=== PATIENT | female | born 1990 | race Caucasian/White ===

== ENCOUNTER 2019-07-27 07:29 | Observation (INO) ==
--- NOTE | 2019-07-24 10:12 | Anesthesiology Consultation ---
Date of Service July 24, 2019 Assessment & Plan Chart Review Chart Review: Acceptable Risk for Surgery and Patient NOT seen in Pre Admission Testing Consults Requested none ASA ASA2 Proposed Anesthesia Anesthesia Type: General History Surgery Operation Date: 07/27/19 08:15 Proposed Procedures p Laparoscopic Cholecystectomy - Bj White MD, FACS Height/Weight Height: 5 ft 5 in Weight: 104.78 kg Allergies Allergy/AdvReac Type Severity Reaction Status Date / Time bee venom protein (honey bee) Allergy Severe ANAPHYLAXIS Verified 07/24/19 08:48 BODY GLITTER Allergy Intermediate swelling Uncoded 07/24/19 08:48 Medications Home Medications Medication Instructions Recorded Confirmed Last Taken albuterol sulfate 1.25 mg INH Q6H PRN #75 ml 05/31/18 07/24/19 Unknown acetaminophen [Tylenol] 650 mg PO Q6H PRN 07/21/19 07/24/19 Unknown oxycodone 5 mg PO Q4H PRN 07/24/19 07/24/19 Unknown Past Medical History Medical History Anxiety Asthma rarely uses PRN INH Attention deficit disorder (Chronic 01/13/13) Depression (Chronic 01/13/13) No significant active problems (Resolved) Exercise / Class Metabolic Activity II 4-5 Yardwork/Stairs/Walk up hill Past Family History Family History Mother FHx: cholecystectomy Sister Hx of cholecystectomy Past Surgical History Surgical History H/O pilonidal cyst (Resolved) S/P SURGICAL EXCISION, CLOSURE WITH WOUND VAC Past Anesthesia History No Hx of Anesthesia Complications and No Family Hx of Anesthesia Complications History of PONV No Hx of PONV and No Hx of Motion Sickness Social History Smoking Status: Current every day smoker tobacco type: cigarettes Smoking cigarettes per day: 1/2 ppd Do You Dip or Chew Tobacco: No Hx Alcohol Use: No Hx Substance Use: No substance use type: does not use Testing Laboratory Results WBC:11.77 Hc.8 Hct: 40.8 PLATELETS: 225 SODIUM: 138 POTASSIUM: 3.8 CHLORIDE: 105 CO2: 30 BUN: 17 CREATININE: 0.7 GLUCOSE: 98 PT: PTT: INR: UA: TYPE AND SCREEN: Chest X-Ray Date: 05/30/19 Findings: + NAD
[~2019-07-27 07:29] MED LIST: LR 15ML/HR IV SCH; LR 500ML BOLUS, THEN 15ML/HR IV SCH; cefUROXime 1,500 MG in DEXTROSE 5% 100 ML IV SCH
[2019-07-27] MEDS ORDERED: PROMETHAZINE HCL 12.5 MG in SODIUM CHLORIDE 0.9% 50 ML IV PRN ×2 (08:20→11:33)
[2019-07-27] MEDS ORDERED: ONDANSETRON INJ 2 MG/ML 2 ML VIAL IV PRN ×2 (08:20→11:33)
[2019-07-27] MEDS ORDERED: KETOROLAC 30 MG/ML VIAL IV PRN (08:20)
[2019-07-27] MEDS ORDERED: ATROPINE SULFATE 0.1 MG/ML 10ML SYR IV PRN (08:20)
[2019-07-27] MEDS ORDERED: SCOPOLAMINE 1.5 MG TDSY TD ONE (08:23)
[2019-07-27] MEDS ORDERED: DEXAMETHASONE SOD INJ 4 MG/ML VIAL ONE (09:06)
[2019-07-27] MEDS ORDERED: GLYCOPYRROLATE 0.2 MG/ML VIAL ONE (09:06)
[2019-07-27] MEDS ORDERED: MIDAZOLAM HCL 1 MG/ML 2ML VIAL ONE (09:06)
[2019-07-27] MEDS ORDERED: NEOSTIGMINE METHYLSULFATE 5 MG/5 ML SYR ONE (09:06)
[2019-07-27] MEDS ORDERED: PROPOFOL IV EMULSION 10 MG/ML 20 ML VIAL IV ONE (09:06)
[2019-07-27] MEDS ORDERED: LIDOCAINE HCL 2% 2 ML VIAL/AMP(20MG/ML) INFIL ONE (09:06)
[2019-07-27] MEDS ORDERED: ONDANSETRON INJ 2 MG/ML 2 ML VIAL ONE (09:06)
[2019-07-27] MEDS ORDERED: fentaNYL citrate 100 MCG/2 ML VIAL ONE ×2 (09:07→10:33)
--- NOTE | 2019-07-27 09:11 | History & Physical Bridge Note ---
Date of Service July 27, 2019 History & Physical Bridge Note I have examined the patient, reviewed the History & Physical and in the interval since the performance of the History & Physical I have noted the following changes of clinical significance: no changes noted
[2019-07-27] MEDS ORDERED: CONRAY 60% 50 ML VIAL ONE (09:16)
[2019-07-27] MEDS ORDERED: BUPIVACAINE 0.5 % 5 MG/1 ML MPF 30ML VIAL ONE (09:16)
[2019-07-27] MEDS ORDERED: ROCURONIUM BROMIDE 10 MG/ML 5 ML VIAL ONE (09:52)
--- NOTE | 2019-07-27 10:18 | Post Operative Brief Note ---
PG Immediate Post Op with CF Date of Surgery July 27, 2019 Pre & Post Diagnosis Operation Date: 07/27/19 09:15 Pre-Op Diagnosis: Biliary Colic postop- chronic cholecystitis I identified the patient and participated in the time-out.: Yes Procedure Operation Date: 07/27/19 09:15 Actual Procedures p Laparoscopic Cholecystectomy(Not Applicable) - Bj White MD, FACS Surgeon Bj White MD, FACS Component Inspector Tatianna Lindo Estimated Blood Loss 10 Findings Consistent with Post-Op Diagnosis Specimens Specimen Description: Permanent: A. Gallbladder
[2019-07-27] MEDS ORDERED: KETOROLAC 30 MG/ML VIAL ONE (10:19)
[2019-07-27] MEDS ORDERED: ACETAMINOPHEN 1,000 MG/100 ML VIAL IV STA (10:21)
[2019-07-27] MEDS: HYDROmorphone INJ 1 MG/ML SYRINGE IV PRN ×6 (10:44→11:09)
--- NOTE | 2019-07-27 10:49 | Operative Report ---
DATE OF OPERATION: 07/27/2019 NAME OF OPERATION: Laparoscopic cholecystectomy. PREOPERATIVE DIAGNOSIS: Chronic cholecystitis. POSTOPERATIVE DIAGNOSIS: Chronic cholecystitis. STAFF SURGEON: Bj White MD [employer] HARDWARE INSTALLER: Pratik Lindo PA-C ANESTHESIA: General. DESCRIPTION OF PROCEDURE: The patient was brought in the operating room and placed on the operating table in supine position. Her abdomen was prepped and draped in usual fashion. Pneumatic stockings, orogastric tube were placed. A 0.5% plain Marcaine was used to anesthetize all incisions. Incision was made above the umbilicus, carrying dissection down very deeply through significant adipose tissue to the fascia, placing a Veress needle producing pneumoperitoneum. An 11 mm port placed this level and then under visualization, three 5 mm ports placed, 1 cephalad and 2 laterally. My speech and language assistant helped with prepping, draping, removal of the gallbladder and closure of the wounds. The gallbladder was grasped and retracted. The patient did have significant fatty liver. Dissection was carried out the halie hepatis, identifying the cystic duct and cystic artery. These were clipped and transected and the gallbladder dissected away from the liver bed in the usual fashion. There was evidence of chronic inflammation consistent with chronic cholecystitis. Gallbladder was placed in an Endobag. After appropriate hemostasis and irrigation, the Endobag was removed through the umbilical site. The patient had one single large gallstone. The fascia at the umbilicus closed using interrupted 0 Vicryl suture, then the skin reapproximated using subcuticular 4-0 Monocryl with Dermabond. The patient was transferred to recovery room in stable condition. I attest to the content of the Intraoperative Record and any orders documented therein. Any exception s are noted below.
[2019-07-27] MEDS ORDERED: OXYCODONE/ACETAMINOPHEN 5mg/325mg TAB PO PRN ×2 (11:33)
[2019-07-27] MEDS ORDERED: ACETAMINOPHEN 325 MG TAB PO PRN (11:33)
[2019-07-27] MEDS ORDERED: MoRPHine SULFATE 2 MG/ML CARP IV PRN (11:33)
[2019-07-27] MEDS ORDERED: NON-FORMULARY MEDICATION (Albuterol Sulfate 1.25 MG) INH PRN (11:33)
[2019-07-27] MEDS ORDERED: PROMETHAZINE HCL 25 MG in SODIUM CHLORIDE 0.9% 50 ML IV PRN (11:33)
[2019-07-27] MEDS ORDERED: SODIUM CHLORIDE 0.9% 1000ML 1,000 ML IV SCH (11:33)
[2019-07-27] MEDS ORDERED: MoRPHine SULFATE 2 MG/ML CARP ONE (11:59)
[2019-07-27] MEDS ORDERED: ALBUTEROL 0.083% NEBU SOLN 3 ML VIAL INH PRN (12:06)
--- NOTE | 2019-07-27 13:55 | Anesthesiology Progress Note ---
Date of Service July 27, 2019 Anesthesia Post Procedure Vital Signs Vital Signs: Temp Pulse Pulse Pulse Resp BP Pulse Ox 07/27/19 13:24 36.7 C 60 19 121/78 96 07/27/19 12:31 57 L 19 138/92 96 07/27/19 11:56 36.5 C 53 L 19 134/86 96 07/27/19 11:41 36.9 C 56 L 18 128/83 95 07/27/19 11:15 61 22 131/51 L 97 07/27/19 11:05 57 L 14 142/83 H 95 07/27/19 10:55 58 L 17 127/86 100 07/27/19 10:45 53 L 13 134/80 98 07/27/19 10:38 36.4 C L 67 13 141/93 H 100 07/27/19 08:06 36.9 C 66 18 117/71 97 Pain Intensity Abdomen: Pain Intensity: 8 Transfer of Care Handoff Completed per policy Notes Mental Status: alert / awake / arousable Patient Amnestic to Procedure: Yes Nausea / Vomiting: adequately controlled Pain: adequately controlled Airway Patency, RR, SpO2: stable & adequate BP & HR: stable & adequate Hydration State: stable & adequate Anesthetic Complications: no major complications apparent
[2019-07-27] MEDS ORDERED: CHECK SCOPOLAMINE PATCH PLACEMENT SCH (16:00)
--- NOTE | 2019-07-31 08:22 | Discharge Summary ---
Date of Service July 31, 2019 Principal Diagnosis Chronic cholecystitis Discharge Exam Gastrointestinal (Abdomen) Inspection/Auscultation: + abdominal surgical incision (clean, dry) Percussion/Palpation: abdomen soft Discharge Data Allergies Allergy/AdvReac Type Severity Reaction Status Date / Time bee venom protein (honey bee) Allergy Severe ANAPHYLAXIS Verified 07/27/19 08:10 BODY GLITTER Allergy Intermediate swelling Uncoded 07/27/19 08:10 Procedures Performed Operation Date: 07/27/19 09:15 Actual Procedures p Laparoscopic Cholecystectomy(Not Applicable) - Bj White MD, [facility] Hospital Course (1) S/P laparoscopic cholecystectomy: 29 y/o female with chronic cholecystitis was taken to the operating room for elective cholecystectomy. She was observed on the surgical floor overnight. The next day she was tolerating diet and oral analgesics. She was stable for discharge. Total Time Total Time Spent Total Time Spent (In Minutes): 10 Discharge Plan Discharge Items Patient Disposition: Home - Self-Care Reason For Visit: Biliary Colic- GALLBLADDER SURGERY Discharge Diagnosis: chronic cholecystitis Activity: As commented below Activity Comment: light activity for 3 weeks Lifting: No more than 10 pounds Bathing Comment: may shower Sexual Activity: When tolerated Exercise Comment: wait 3 weeks Non-emergency contact: Primary Care Provider and Surgeon Call non-emergency contact if: your pain is not controlled, your temperature is above 101 and your wound has increased drainage Follow-up/Referrals: PCPNATALIYA [Primary Care Provider] - Diet: Regular Addtl Attending Provider Instructions: SPECIAL CARE INSTRUCTIONS: you will need 2 weeks off work and possibly longer * Cover incisions and change daily for comfort/drainage. May leave uncovered with dermabond * May use ibuprofen for pain as tolerated. * Expect some swelling and bruising. Call your doctor if: * Temperature above 101 degrees * Pain not relieved by pain medicine ordered * There is increased drainage or redness from any incision * You have any unanswered questions or concerns [phone]. FOLLOW UP VISIT: If not already scheduled, please call the office for a follow-up visit. OFFICE PHONE NUMBER: Dr. White Office for 2 weeks- check up- no sutures to remove Pending Studies at Discharge: No Stand-Alone Forms: My [facility], Opioid Pain Management, Smoking Cessation Medications and DC Order Prescriptions: New oxycodone-acetaminophen [Percocet] 5-325 mg tablet 1 - 2 tab PO Q6H PRN (Reason: pain) Qty: 30 RF: 0 Continued albuterol sulfate 1.25 mg/3 mL solution for nebulization 1.25 mg INH Q6H PRN (Reason: bronchospasm) Qty: 75 RF: 0 acetaminophen [Tylenol] 325 mg Tablet 650 mg PO Q6H PRN (Reason: Fever Or Pain) RF: 0 Discontinued oxycodone 5 mg Tablet 5 mg PO Q4H PRN (Reason: Pain) RF: 0 Discharge Orders: Discharge Order (Routine); Ordered 07/27/19 Ordered By: Bj White Admission Data Admit Date/Time: 07/27/19 10:18 Attending Provider: Bj White Admit Provider: Bj White Primary Care Provider: PCP,NO Other Interventions: Discharge Summary Assessment (RN) Last Done: 07/27/19 14:15 DC Date/Time DO NOT enter until pt leaves facility: 07/27/19 15:00
== END 2019-07-27 15:00 | disposition home or self-care (01) ==
LOC: 3W 07:29 → ASU 07:29

== ENCOUNTER 2021-01-29 12:35 | Inpatient (IN) ==
[2021-01-29] MEDS ORDERED: diphenhydrAMINE 50 MG/ML VIAL IV STA (13:13)
[2021-01-29] MEDS ORDERED: dexAMETHasone**PF** 10 MG/ML VIAL IV ONE (13:13)
[2021-01-29] MEDS ORDERED: PROCHLORPERAZINE 5 MG/ML 2 ML VIAL IV STA (13:13)
[2021-01-29] MEDS ORDERED: KETOROLAC TROMETHAMINE 15 MG/ML VIAL IV STA (13:13)
[2021-01-29] MEDS ORDERED: SODIUM CHLORIDE 0.9% 1000ML 2,000 ML IV STA (13:20)
--- NOTE | 2021-01-29 13:32 | Emergency Department Note ---
Impression & Plan Sepsis, COVID-19, Leukocytosis ED Provider Note CHIEF COMPLAINT: Body aches, headaches, nausea and vomiting, rash on hands and feet HISTORY OF PRESENTING ILLNESS: This is a 30-year-old female who presents to the emergency department via EMS from home with complaints of nausea, vomiting, head ache, body aches, joint pain, and a red rash on hands and feet. She states she first started feeling sick about 4 days ago, mostly with body aches, then began to develop a headache and nausea with vomiting. She states she has a history of migraines and this feels similar, but she does not usually get body aches with her migraines. She has also noticed a red rash that comes and goes on her hands and feet since yesterday. The rash is not itchy or painful. She complains of back pain, but notes a history of degenerative disc disease and chronic upper back pain from this. She denies neck pain or stiffness. She denies blurry or double vision. She does have light sensitivity which is consistent with her previous migraines. She rates her headache and body aches a 7/10. She has not tried taking any [id number] pain medications for her symptoms. She does note that she takes Suboxone for history of narcotic and heroin abuse and she states she has been on this for about 3 months. She denies current use of heroin or other IV drug use. She also notes that she uses medical marijuana, usually about 1-2 times a day, but notes she has not been able to use it for the past few days because she has barely been getting out of bed. She feels dehydrated. She denies abdominal pain, diarrhea or constipation and denies any urinary symptoms. She denies any chest pain, chest tightness, shortness of breath, cough or URI symptoms, or loss of taste/smell. She denies any exposures to COVID-19. She has not been vaccinated against COVID-19. REVIEW OF SYSTEMS: A complete 10 point review of systems was reviewed with the patient with pertinent positives and negatives as per history of present illness. All else were negative. PAST MEDICAL HISTORY: Anxiety, PTSD, depression, attention deficit disorder, asthma, history of opioid and IV heroin abuse SOCIAL HISTORY: Lives at home, she is a current every day smoker and also smokes marijuana daily, denies alcohol, denies other recreational drug use or IV drug use ALLERGIES: No known drug allergies PHYSICAL EXAM: CONSTITUTIONAL: Alert, Pleasant and cooperative. Nontoxic-appearing and in no acute distress, but appears uncomfortable. Moderately dehydrated. HEENT: Normocephalic, atraumatic. PERRL, EOMI with no nystagmus. TMs normal bilaterally. Pharynx normal. Dry mucous membranes. NECK: Supple, full active range of motion without discomfort. No nuchal rigidity or meningismus. No cervical adenopathy. RESPIRATORY: Clear to auscultation bilaterally with no wheezing, crackles, rhonchi or stridor. Equal expansion bilaterally. CARDIOVASCULAR: Regular rate and rhythm with no murmurs, rubs or gallops. Normal peripheral perfusion. No pitting edema. GASTROINTESTINAL: Soft, nontender to palpation throughout, nondistended. No palpable masses or HSM. Bowel sounds present in all quadrants. No CVA tenderness bilaterally. MUSCULOSKELETAL: Full range of motion of all joints without discomfort. INTEGUMENTARY: There is an erythematous macular rash noted to the bilateral hands and feet, nontender to palpation, not pruritic. No papular or raised lesions. No pustular or vesicular lesions. No fluctuance or discharge. NEUROLOGIC: Alert and oriented X 4 with normal affect. Cranial nerves II-XII grossly intact, no facial droop. No pronator drift. No focal neurologic deficits noted. [id number] testing normal. 5/5 strength in all 4 extremities with dorsiflexion and plantarflexion strong and intact. Deep tendon reflexes of the lower extremities 2+ bilaterally. Sensation intact to light touch in all 4 extremities. Normal speech. Normal gait observed. ED COURSE AND MEDICAL DECISION MAKING: CC: Patient presenting with complaint of body aches, headaches, nausea vomiting, rash on hands and feet DIFFERENTIAL DIAGNOSIS: Includes, but not limited to migraine headache, tension headache, sinusitis, acute intracranial bleed, meningitis, encephalitis, mass or mass effect, COVID-19 infection, dehydration, electrolyte imbalance, anemia, infectious process, sepsis/bacteremia, endocarditis, discitis, epidural abscess, among others. INTERPRETATION OF LABS: Leukocytosis with left shift, no anemia, thromboc ytopenia, no significant electrolyte abnormalities, moderately elevated BUN with a normal creatinine, diffuse elevation of liver enzymes, normal lipase. Serum negative. Lactate within normal limits. CRP significantly elevated. Procalcitonin significantly elevated. Lyme antibodies and anaplasma smear negative. SARS-CoV-2 PCR test is POSITIVE. Urinalysis is negative for UTI. Urine negative. EKG: Shows normal sinus rhythm with a rate of 86 bpm, normal intervals, no ST e levation or depression, no ectopy, nonspecific T wave changes which appear to be slightly worse when compared to previous EKG from 01/14/2013 by my interpretation. MEDICATION RECONCILIATION: I attest that I have personally reviewed the patient's current medication list. INITIAL VITAL SIGNS REVIEW: I reviewed the patient's initial vital signs and interpret them as follows: T: Afebrile; BP: Mildly hypotensive; HR: Mildly tachycardic; RR: Within normal limits; Pulse Ox: Within normal limits on room air. MDM SUMMARY: Patient was evaluated at bedside, history and physical exam performed. Patient is alert and oriented, in no acute distress, but appears to feel unwell and uncomfortable from pain. Resting in the stretcher. She is afebrile and nontoxic-appearing. She is noted to be mildly hypotensive and tachycardic, though she notes that her blood pressure usually runs low. She is neurologically intact with no focal deficits. There is no meningismus on exam, I do not suspect meningitis clinically. Lung sounds are clear, she denies a cough or difficulty breathing. Abdomen is soft and nontender throughout. She complains of diffuse back pain, but does not have tenderness to palpation over the spine. She is neurovascularly intact, normal strength in all 4 extremities with normal reflexes. She complains of some nausea, but is not actively vomiting. Cardiac monitoring: An order was placed for continuous cardiac monitoring. The monitor shows a rate of 98 bpm with normal sinus rhythm. Orders were placed for labs including CBC, CMP, Lyme antibodies, Anaplasma smear, send out anaplasmosis and ehrlichiosis, lactic acid, blood cultures x2, urinalysis and urine , COVID-19 testing, IV fluid bolus x2 L for hydration, migraine cocktail including IV Toradol 10 mg, IV Compazine 10 mg, IV Benadryl 50 mg, and IV Decadron 10 mg, CT of the head to evaluate for headache. Patient discussed with Dr. Herrera, who agrees with my assessment, plan, and disposition. Initial labs reviewed noting leukocytosis with a left shift. Given the patient's history of IV drug abuse and her complaint of severe back pain, I did opt to perform MRI studies of the thoracic and lumbar spine with and without contrast to evaluate for discitis or epidural abscess. Additional labs were placed for ESR, CRP, and procalcitonin. CT imaging of the head was unremarkable. The patient's Covid test came back positive. This may account for some of her symptoms. However, she has a leukocytosis and in addition has an elevated CRP and significantly elevated procalcitonin. Lyme antibodies and Anaplasma smear are negative. She does not appear to have a UTI. She does appear to be significantly dehydrated. Dr. Herrera evaluated the patient and he felt that she may have a systolic murmur on his exam. This does raise the concern for possible endocarditis given the history of IV drug abuse. Orders for an EKG and chest x-ray were also placed. She was covered empirically with vancomycin and ceftriaxone. She was given an additional bolus of lactated Ringer's IV fluids, for a total of 3 L of IV fluid infused. She remains afebrile. She has been borderline hypotensive, but her tachycardia has resolved. I did [facility] with [facility] regarding admission, they agreed to evaluate the patient. Patient reassessed multiple times throughout ED stay, she has remained hemodynamically stable and afebrile and notes that her symptoms are somewhat improved after the above treatment. The patient was updated on all results and plan for admission, she was comfortable with this plan. The patient was stable at time of admission. CRITICAL CARE NOTE: I have personally spent greater than 32 minutes of critical care time in the direct management of this patient. This includes bedside care, interpretation of diagnostic studies, and testing, discussion with consultants, patient, and f amily members, and other required patient management activities. This 32 minutes is in excess of all separately billable procedures. The chart was completed utilizing [employer] Speech voice recognition software. Grammatical errors, random word insertions, pronoun errors, and incomplete sentences are an occasional consequence of this system due to software limitations, ambient noise, and hardware issues. Any formal questions or concerns about the content, text, or information contained within the body of this dictation should be directly addressed to the nurse practitioner for clarification. Past Med/Surg History Medical History Anaphylactic reaction to bee sting Anxiety Asthma rarely uses PRN INH Attention deficit disorder (01/13/13) Cholelithiases Depression (01/13/13) Medication reaction Surgical History H/O pilonidal cyst S/P SURGICAL EXCISION, CLOSURE WITH WOUND VAC Family History Mother FHx: cholecystectomy Sister Hx of cholecystectomy Social History Smoking Status: Current every day smoker Tobacco Type: E-cigarettes / Vaping Cigarettes Per Day: 1/2 ppd; Second Hand Exposure: Yes (as a child); Tobacco Cessation Education Requested by Patient: No Hx Alcohol Use: No Hx Substance Use: No Preferred Language: German Communication Ability: Effective Visual Impairment: Limited [employer] Consultant Required: No Beliefs That Will Affect Care: None marital status: Single Current Living Situation: Family Feels Safe at Home: Yes Safety Concerns: Feels Safe At This Time Assistive Devices: None Allergies Allergies Allergy/AdvReac Type Severity Reaction Status Date / Time bee venom protein (honey bee) Allergy Severe ANAPHYLAXIS Verified 01/04/21 08:06 BODY GLITTER Allergy Intermediate swelling Uncoded 01/04/21 08:06 Home Meds Home Medications Medication Instructions Recorded Confirmed acetaminophen [Tylenol] 650 mg PO Q6H PRN 07/21/19 01/29/21 buprenorphine 8 mg-naloxone 2 mg 1 film SUBLINGUAL DAILY 11/25/20 01/29/21 sublingual film Medical Marijuana 1 dose PO DAILY PRN 12/21/20 01/29/21 Previous Rx's Medication Instructions Recorded albuterol sulfate 1.25 mg INH Q6H PRN #75 ml 05/31/18 cyclobenzaprine 10 mg tablet 10 mg PO TID PRN #90 tab 05/02/20 albuterol sulfate 90 mcg/actuation 2 puff INHALATION Q4 PRN #6.7 g 09/29/20 aerosol inhaler epinephrine 0.3 mg/0.3 mL 0.3 mg IM Q10M PRN #1 ea 09/29/20 injection, auto-injector Results & Data (ED) Vital Signs Vital Signs - 24 hr 01/29/21 12:41 01/29/21 12:45 01/29/21 12:50 Temperature 36.5 C Temperature Source Oral Pulse Rate 94 H 96 H 97 H Pulse Rate from SpO2 Sensor 95 H 97 H Respiratory Rate 12 15 14 Blood Pressure 100/49 L 100/49 L Blood Pressure Mean 66 66 Pulse Oximetry 100 99 Oxygen Delivery Method Room Air Sepsis Recent Fever Within 48 Hours No Sepsis New/Unexplained Change in Mental Status No Sepsis Action Taken by Nursing No Action Required 01/29/21 13:00 01/29/21 14:02 01/29/21 14:03 Temperature Temperature Source Pulse Rate 93 H 97 H Pulse Rate from SpO2 Sensor 97 H 98 H Respiratory Rate 14 16 Blood Pressure 99/61 L 107/52 L Blood Pressure Mean 73 70 Pulse Oximetry 98 97 99 Oxygen Delivery Method Room Air Room Air Sepsis Recent Fever Within 48 Hours Sepsis New/Unexplained Change in Mental Status Sepsis Action Taken by Nursing 01/29/21 14:20 01/29/21 14:30 01/29/21 15:01 Temperature Temperature Source Pulse Rate 98 H 96 H 99 H Pulse Rate from SpO2 Sensor 93 H 94 H Respiratory Rate 12 14 16 Blood Pressure 127/59 L 99/79 L Blood Pressure Mean 81 85 Pulse Oximetry 98 100 Oxygen Delivery Method Room Air Room Air Sepsis Recent Fever Within 48 Hours Sepsis New/Unexplained Change in Mental Status Sepsis Action Taken by Nursing 01/29/21 16:45 01/29/21 16:47 01/29/21 17:01 Temperature Temperature Source Pulse Rate 97 H 89 Pulse Rate from SpO2 Sensor 90 96 H 89 Respiratory Rate 10 L 12 Blood Pressure 86/37 L 93/44 L Blood Pressure Mean 53 60 Pulse Oximetry 95 96 98 Oxygen Delivery Method Room Air Room Air Sepsis Recent Fever Within 48 Hours Sepsis New/Unexplained Change in Mental Status Sepsis Action Taken by Nursing 01/29/21 17:31 01/29/21 18:01 01/29/21 18:02 Temperature Temperature Source Pulse Rate 91 H 94 H 94 H Pulse Rate from SpO2 Sensor 91 H Respiratory Rate 14 13 13 Blood Pressure 98/45 L 98/48 L Blood Pressure Mean 62 64 Pulse Oximetry 99 95 Oxygen Delivery Method Room Air Sepsis Recent Fever Within 48 Hours Sepsis New/Unexplained Change in Mental Status Sepsis Action Taken by Nursing 01/29/21 18:30 01/29/21 18:31 01/29/21 19:00 Temperature Temperature Source Pulse Rate 77 81 87 Pulse Rate from SpO2 Sensor Respiratory Rate 13 13 11 L Blood Pressure 108/66 Blood Pressure Mean 80 Pulse Oximetry Oxygen Delivery Method Sepsis Recent Fever Within 48 Hours Sepsis New/Unexplained Change in Mental Status Sepsis Action Taken by Nursing 01/29/21 19:30 Temperature Temperature Source Pulse Rate 87 Pulse Rate from SpO2 Sensor Respiratory Rate 12 Blood Pressure Blood Pressure Mean Pulse Oximetry Oxygen Delivery Method Sepsis Recent Fever Within 48 Hours Sepsis New/Unexplained Change in Mental Status Sepsis Action Taken by Nursing Laboratory Data Result diagrams: 01/29/21 13:35 01/29/21 14:07 Lab Results 01/29/21 01/29/21 01/29/21 Range/Units 13:25 13:25 13:35 WBC 22.12 H (4.8-10.8) K/uL RBC 4.78 (4.2-5.4) M/uL Hgb 12.9 (12.0-16.0) g/dL Hct 37.2 (37-47) % MCV 77.8 L (80-100) fL MCH 27.0 (25-34) pg MCHC 34.7 (32-36) g/dL RDW Std Deviation 39.6 (36.4-46.3) fL RDW Coeff of Yessy 13.9 (11.5-14.5) % Plt Count 105 L (130-400) K/uL MPV 11.9 H (7.4-10.4) fL Immature Gran % (Auto) 0.4 % Neut % (Auto) 93.9 % Lymph % (Auto) 3.6 % [place] % (Auto) 2.1 % Eos % (Auto) 0.0 % Baso % (Auto) 0.0 % Neut # (Auto) 20.76 H (1.4-6.5) K/uL Lymph # (Auto) 0.80 L (1.2-3.4) K/uL Sum[place] # (Auto) 0.46 (0.11-0.59) K/uL Eos # (Auto) 0.00 (0-0.5) K/uL Baso # (Auto) 0.01 (0-0.2) K/uL Immature Gran # (Auto) 0.09 H (0.00-0.02) K/uL Dohle Bodies 1+ ESR (0-20) mm/hr PT (9.0-12.0) Seconds INR (0.9-1.1) Sodium (136-145) mmol/L Potassium (3.5-5.1) mmol/L Chloride (98-107) mmol/L Carbon Dioxide (21-32) mmol/L Anion Gap (3-11) BUN (7-18) mg/dl Creatinine (0.6-1.2) mg/dl Est Cr Clr Drug Dosing ml/min Est GFR ( Amer) ml/min Est GFR (Non-Af Amer) ml/min BUN/Creatinine Ratio (10-20) Glucose (70-99) mg/dl Lactate (0.4-2.0) mmol/L Calcium (8.5-10.1) mg/dl Total Bilirubin (0.2-1) mg/dl AST (15-37) U/L ALT (12-78) U/L Alkaline Phosphatase (45-117) U/L C-Reactive Protein (0-0.29) mg/dl Total Protein (6.4-8.2) gm/dl Albumin (3.4-5.0) gm/dl Globulin (2.5-4.0) gm/dl Albumin/Globulin Ratio (0.9-2) Procalcitonin (0-0.5) ng/ml HCG, Qual (Negative) Anaplasma Smear See Comment Lyme Disease IgG Ab Lyme Disease IgM Ab COVID-19 Eval Order Covid19 at [facility] SARS-CoV-2 (PCR) POSITIVE A* (Negative) 01/29/21 01/29/21 01/29/21 Range/Units 13:35 13:35 14:07 WBC (4.8-10.8) K/uL RBC (4.2-5.4) M/uL Hgb (12.0-16.0) g/dL Hct (37-47) % MCV (80-100) fL MCH (25-34) pg MCHC (32-36) g/dL RDW Std Deviation (36.4-46.3) fL RDW Coeff of Yessy (11.5-14.5) % Plt Count (130-400) K/uL MPV (7.4-10.4) fL Immature Gran % (Auto) % Neut % (Auto) % Lymph % (Auto) % [place] % (Auto) % Eos % (Auto) % Baso % (Auto) % Neut # (Auto) (1.4-6.5) K/uL Lymph # (Auto) (1.2-3.4) K/uL Sum[place] # (Auto) (0.11-0.59) K/uL Eos # (Auto) (0-0.5) K/uL Baso # (Auto) (0-0.2) K/uL Immature Gran # (Auto) (0.00-0.02) K/uL Dohle Bodies ESR (0-20) mm/hr PT (9.0-12.0) Seconds INR (0.9-1.1) Sodium 134 L (136-145) mmol/L Potassium (3.5-5.1) mmol/L Chloride 102 (98-107) mmol/L Carbon Dioxide 24 (21-32) mmol/L Anion Gap 8.0 (3-11) BUN 32 H (7-18) mg/dl Creatinine 0.79 (0.6-1.2) mg/dl Est Cr Clr Drug Dosing 110.1 ml/min Est GFR ( Amer) 116.4 ml/min Est GFR (Non-Af Amer) 100.5 ml/min BUN/Creatinine Ratio 40.8 H (10-20) Glucose 75 (70-99) mg/dl Lactate (0.4-2.0) mmol/L Calcium 8.1 L (8.5-10.1) mg/dl Total Bilirubin 1.3 H (0.2-1) mg/dl AST (15-37) U/L ALT 163 H (12-78) U/L Alkaline Phosphatase 135 H (45-117) U/L C-Reactive Protein (0-0.29) mg/dl Total Protein 7.1 (6.4-8.2) gm/dl Albumin 3.2 L (3.4-5.0) gm/dl Globulin 3.9 (2.5-4.0) gm/dl Albumin/Globulin Ratio 0.8 L (0.9-2) Procalcitonin (0-0.5) ng/ml HCG, Qual (Negative) Anaplasma Smear Lyme Disease IgG Ab Cancelled Negative Lyme Disease IgM Ab Cancelled Negative COVID-19 Eval Order SARS-CoV-2 (PCR) (Negative) 01/29/21 01/29/21 01/29/21 Range/Units 14:07 14:07 14:07 WBC (4.8-10.8) K/uL RBC (4.2-5.4) M/uL Hgb (12.0-16.0) g/dL Hct (37-47) % MCV (80-100) fL MCH (25-34) pg MCHC (32-36) g/dL RDW Std Deviation (36.4-46.3) fL RDW Coeff of Yessy (11.5-14.5) % Plt Count (130-400) K/uL MPV (7.4-10.4) fL Immature Gran % (Auto) % Neut % (Auto) % Lymph % (Auto) % [place] % (Auto) % Eos % (Auto) % Baso % (Auto) % Neut # (Auto) (1.4-6.5) K/uL Lymph # (Auto) (1.2-3.4) K/uL Sumter # (Auto) (0.11-0.59) K/uL Eos # (Auto) (0-0.5) K/uL Baso # (Auto) (0-0.2) K/uL Immature Gran # (Auto) (0.00-0.02) K/uL Dohle Bodies ESR (0-20) mm/hr PT (9.0-12.0) Seconds INR (0.9-1.1) Sodium (136-145) mmol/L Potassium 3.8 (3.5-5.1) mmol/L Chloride (98-107) mmol/L Carbon Dioxide (21-32) mmol/L Anion Gap (3-11) BUN (7-18) mg/dl Creatinine (0.6-1.2) mg/dl Est Cr Clr Drug Dosing ml/min Est GFR ( Amer) ml/min Est GFR (Non-Af Amer) ml/min BUN/Creatinine Ratio (10-20) Glucose (70-99) mg/dl Lactate (0.4-2.0) mmol/L Calcium (8.5-10.1) mg/dl Total Bilirubin (0.2-1) mg/dl AST 70 H (15-37) U/L ALT (12-78) U/L Alkaline Phosphatase (45-117) U/L C-Reactive Protein 19.80 H (0-0.29) mg/dl Total Protein (6.4-8.2) gm/dl Albumin (3.4-5.0) gm/dl Globulin (2.5-4.0) gm/dl Albumin/Globulin Ratio (0.9-2) Procalcitonin 21.72 H (0-0.5) ng/ml HCG, Qual (Negative) Anaplasma Smear Lyme Disease IgG Ab Lyme Disease IgM Ab COVID-19 Eval Order SARS-CoV-2 (PCR) (Negative) 01/29/21 01/29/21 01/29/21 Range/Units 14:07 14:08 14:08 WBC (4.8-10.8) K/uL RBC (4.2-5.4) M/uL Hgb (12.0-16.0) g/dL Hct (37-47) % MCV (80-100) fL MCH (25-34) pg MCHC (32-36) g/dL RDW Std Deviation (36.4-46.3) fL RDW Coeff of Yessy (11.5-14.5) % Plt Count (130-400) K/uL MPV (7.4-10.4) fL Immature Gran % (Auto) % Neut % (Auto) % Lymph % (Auto) % [place] % (Auto) % Eos % (Auto) % Baso % (Auto) % Neut # (Auto) (1.4-6.5) K/uL Lymph # (Auto) (1.2-3.4) K/uL [place] # (Auto) (0.11-0.59) K/uL Eos # (Auto) (0-0.5) K/uL Baso # (Auto) (0-0.2) K/uL Immature Gran # (Auto) (0.00-0.02) K/uL Dohle Bodies ESR 20 (0-20) mm/hr PT (9.0-12.0) Seconds INR (0.9-1.1) Sodium (136-145) mmol/L Potassium (3.5-5.1) mmol/L Chloride (98-107) mmol/L Carbon Dioxide (21-32) mmol/L Anion Gap (3-11) BUN (7-18) mg/dl Creatinine (0.6-1.2) mg/dl Est Cr Clr Drug Dosing ml/min Est GFR ( Amer) ml/min Est GFR (Non-Af Amer) ml/min BUN/Creatinine Ratio (10-20) Glucose (70-99) mg/dl Lactate 1.3 (0.4-2.0) mmol/L Calcium (8.5-10.1) mg/dl Total Bilirubin (0.2-1) mg/dl AST (15-37) U/L ALT (12-78) U/L Alkaline Phosphatase (45-117) U/L C-Reactive Protein (0-0.29) mg/dl Total Protein (6.4-8.2) gm/dl Albumin (3.4-5.0) gm/dl Globulin (2.5-4.0) gm/dl Albumin/Globulin Ratio (0.9-2) Procalcitonin (0-0.5) ng/ml HCG, Qual Negative (Negative) Anaplasma Smear Lyme Disease IgG Ab Lyme Disease IgM Ab COVID-19 Eval Order SARS-CoV-2 (PCR) (Negative) 01/29/21 01/29/21 Range/Units 18:39 18:39 WBC (4.8-10.8) K/uL RBC (4.2-5.4) M/uL Hgb (12.0-16.0) g/dL Hct (37-47) % MCV (80-100) fL MCH (25-34) pg MCHC (32-36) g/dL RDW Std Deviation (36.4-46.3) fL RDW Coeff of Yessy (11.5-14.5) % Plt Count (130-400) K/uL MPV (7.4-10.4) fL Immature Gran % (Auto) % Neut % (Auto) % Lymph % (Auto) % [place] % (Auto) % Eos % (Auto) % Baso % (Auto) % Neut # (Auto) (1.4-6.5) K/uL Lymph # (Auto) (1.2-3.4) K/uL [place] # (Auto) (0.11-0.59) K/uL Eos # (Auto) (0-0.5) K/uL Baso # (Auto) (0-0.2) K/uL Immature Gran # (Auto) (0.00-0.02) K/uL Dohle Bodies ESR (0-20) mm/hr PT 10.3 (9.0-12.0) Seconds INR 1.0 (0.9-1.1) Sodium (136-145) mmol/L Potassium (3.5-5.1) mmol/L Chloride (98-107) mmol/L Carbon Dioxide (21-32) mmol/L Anion Gap (3-11) BUN (7-18) mg/dl Creatinine (0.6-1.2) mg/dl Est Cr Clr Drug Dosing ml/min Est GFR ( Amer) ml/min Est GFR (Non-Af Amer) ml/min BUN/Creatinine Ratio (10-20) Glucose (70-99) mg/dl Lactate 0.7 (0.4-2.0) mmol/L Calcium (8.5-10.1) mg/dl Total Bilirubin (0.2-1) mg/dl AST (15-37) U/L ALT (12-78) U/L Alkaline Phosphatase (45-117) U/L C-Reactive Protein (0-0.29) mg/dl Total Protein (6.4-8.2) gm/dl Albumin (3.4-5.0) gm/dl Globulin (2.5-4.0) gm/dl Albumin/Globulin Ratio (0.9-2) Procalcitonin (0-0.5) ng/ml HCG, Qual (Negative) Anaplasma Smear Lyme Disease IgG Ab Lyme Disease IgM Ab COVID-19 Eval Order SARS-CoV-2 (PCR) (Negative) Administered Medications Enoxaparin Sodium (Enoxaparin Inj 30 Mg/0.3 Ml Syr) 30 mg SQ Q12 LUIS MIGUEL Stop: 02/28/21 21:21 Last Admin: 01/30/21 00:15 Dose: 30 mg Documented by: [id number] Parenteral Electrolytes (Normosol-R) 1,000 mls @ 90 mls/hr IV .Q11H7M LUIS MIGUEL Stop: 02/28/21 21:59 Last Admin: 01/30/21 00:16 Dose: 90 mls/hr Documented by: [id number] Vancomycin HCl 1,250 mg/ (Sodium Chloride) 275 mls @ 200 mls/hr IV Q8H LUIS MIGUEL; Protocol Stop: 03/13/21 01:59 Last Admin: 01/30/21 02:38 Dose: 200 mls/hr Documented by: [id number] Melatonin (Melatonin 3 Mg Tab) 3 mg PO HS PRN PRN Reason: Sleep Stop: 02/28/21 22:30 Last Admin: 01/30/21 00:16 Dose: 3 mg Documented by: [id number] Discontinued Medications Dexamethasone Sodium Phosphate (DexamethasonePf 10 Mg/Ml Vial) 10 mg IV NOW ONE Stop: 01/29/21 13:14 Last Admin: 01/29/21 13:55 Dose: 10 mg Documented by: [id number] Diphenhydramine HCl (Diphenhydramine 50 Mg/Ml Vial) 50 mg IV NOW STA Stop: 01/29/21 13:14 Last Admin: 01/29/21 13:54 Dose: 50 mg Documented by: [id number] Gadobutrol (Gadobutrol 10ml Vial) 8 ml IV ONCE ONE Stop: 01/29/21 16:02 Last Admin: 01/29/21 16:01 Dose: 8 ml Documented by: [id number] Sodium Chloride (Nss 1000ml) 2,000 mls @ 999 mls/hr IV .Q2H1M STA Stop: 01/29/21 15:20 Last Infusion: 01/29/21 18:26 Dose: 0 mls/hr Documented by: [id number] Admin: 01/29/21 13:54 Dose: 999 mls/hr Documented by: [id number] Vancomycin HCl 1,750 mg/ (Sodium Chloride) 535 mls @ 200 mls/hr IV NOW ONE Stop: 01/29/21 19:39 Last Infusion: 01/29/21 21:39 Dose: 0 mls/hr Documented by: [id number] Admin: 01/29/21 18:25 Dose: 200 mls/hr Documented by: [id number] Ceftriaxone Sodium (Rocephin) 2,000 mg in 70 mls @ 140 mls/hr IV NOW STA Stop: 01/29/21 17:28 Last Infusion: 01/29/21 17:49 Dose: 0 mls/hr Documented by: [id number] Admin: 01/29/21 17:19 Dose: 140 mls/hr Documented by: [id number] Lactated Ringer's (Lr) 1,000 mls @ 999 mls/hr IV .Q1H1M ONE Stop: 01/29/21 17:59 Last Infusion: 01/29/21 21:38 Dose: 0 mls/hr Documented by: [id number] Admin: 01/29/21 18:25 Dose: 999 mls/hr Documented by: [id number] Lactated Ringer's (Lr) 1,000 mls @ 999 mls/hr IV .Q1H1M ONE Stop: 01/29/21 19:10 Last Admin: 01/29/21 21:40 Dose: Not Given Documented by: [id number] Doxycycline Hyclate 100 mg/ (Dextrose) 110 mls @ 50 mls/hr IV 1930 ONE Stop: 01/29/21 21:41 Last Infusion: 01/30/21 00:23 Dose: 0 mls/hr Documented by: [id number] Admin: 01/29/21 22:11 Dose: 50 mls/hr Documented by: [id number] Calcium Gluconate 1,000 mg/ (Sodium Chloride) 60 mls @ 240 mls/hr IV NOW ONE Stop: 01/29/21 22:14 Last Infusion: 01/30/21 00:31 Dose: 0 mls/hr Documented by: [id number] Admin: 01/30/21 00:16 Dose: 240 mls/hr Documented by: [id number] Ketorolac Tromethamine (Ketorolac Tromethamine 15 Mg/Ml Vial) 10 mg IV NOW STA Stop: 01/29/21 13:14 Last Admin: 01/29/21 13:55 Dose: 10 mg Documented by: [id number] Prochlorperazine (Prochlorperazine 5 Mg/Ml 2 Ml Vial) 10 mg IV NOW STA Stop: 01/29/21 13:14 Last Admin: 01/29/21 13:55 Dose: 10 mg Documented by: [id number] Imaging Data Radiologist's Impression: Lumbar Spine MRI 01/29/21 14:04 MRI OF THE LUMBAR SPINE WITH AND WITHOUT CONTRAST CLINICAL HISTORY: back pain, h/o IVDA, 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 TECHNIQUE: Utilizing a 1.5 Gabriella magnet and dedicated coil, multiplanar, [facility] the [facility] spine was performed before and after uneventful IV administration of 8 mL of Gadavist. FINDINGS: For purposes of numbering on this exam, the L5-S1 disc space is assigned to axial image 23 of 25. Alignment of the lumbar spine is anatomic. Vertebral body heights are maintained. Irregularity of the superior endplate of L1 is degenerative. There is no intracanalicular mass or fluid collection. The conus terminates at the upper L2 level. This exam is mildly compromised by motion artifact. No evidence for discitis. Paravertebral soft tissues are unremarkable. L1-2: The central canal and neural foramen are patent. L2-3: The central canal and neural foramen are patent. L3-4: The central canal and neural foramen are patent L4-5: There is mild disc bulge. Central canal is patent. There is mild narrowing of the lateral recesses and the left neural foramen. L5-S1: Note is made of a right paracentral disc protrusion. This results in moderate narrowing of the right lateral recess with probable mass effect upon the descending right L5 nerve root. There is no significant central canal stenosis. There is mild narrowing of the right neural foramen. IMPRESSION: 1. No evidence for discitis. No epidural fluid collection. 2. Right paracentral disc protrusion at L5-S1 which results in moderate narrowing of the right lateral recess with probable mass effect upon the descending right L5 nerve root. 3. Mild disc bulge at L4-L5. ACT 112: Negative or not required by law. Electronically signed by: Nash Giraldo M.D. 01/29/2021 4:45 PM Thoracic Spine MRI 01/29/21 14:04 MRI OF THE THORACIC SPINE WITH AND WITHOUT CONTRAST CLINICAL HISTORY: back pain, h/o IVDA, eval discitis, abscess COMPARISON: Thoracic spine radiographs November 25, 2020. TECHNIQUE: Utilizing a 1.5 Gabriella magnet and dedicated coil, multiplanar, multiecho imaging of the thoracic spine was performed before and after the intravenous administration of 8 cc. FINDINGS: This exam is compromised by motion artifact. Alignment of the thoracic spine is anatomic. Vertebral body heights are maintained. Mild multilevel en dplate irregularity is degenerative. No suspicious marrow replacement is present. There is no thoracic spine fracture. Thoracic cord signal is suboptimally assessed on this exam given motion artifact but no definite cord signal abnormality is present. There is no intracanalicular mass or fluid colle ction. There is no evidence for discitis. The central canal and neural foramen are patent. IMPRESSION: 1. Exam mildly compromised by motion artifact. No acute process within the thoracic spine by MRI. 2. Mild multilevel endplate irregularity which is degenerative. Patent central canal and neural foramen. 3. Suboptimal evaluation of the thoracic cord signal but no cord signal abnormality identified. ACT 112: Negative or not required by law. Electronically signed by: Nash Giraldo M.D. 01/29/2021 4:39 PM Chest X-Ray 01/29/21 16:59 XR chest 1V portable CLINICAL HISTORY: illness, + COVID COMPARISON STUDY: Chest radiograph May 30, 2018. FINDINGS: Lung volumes are at the lower limits of normal. Lungs are clear. There is no pneumothorax or pleural effusion. Cardiac size is normal. Mediastinal contours are normal. There is no evidence for pulmonary edema. IMPRESSION: No acute cardiopulmonary findings. ACT 112: Negative or not required by law. Electronically signed by: Nash Giraldo M.D. 01/29/2021 6:07 PM Discharge Plan Visit Data Chief Complaint: Illness Stated Complaint: ILLNESS, HEAD & BODY PAIN, LEGS RED & SWOLLEN, N/V ED Provider: Taurus Herrera ED Midlevel Provider: Keyonna Sandoval Discharge Problem: Sepsis, COVID-19, Leukocytosis Patient Disposition: Admitted As Inpatient Discharge Instructions Interventions: ED Discharge Assessment Last Done: 01/29/21 23:03 Discharge Problem: Sepsis Qualifiers: Sepsis type: sepsis due to unspecified organism Sepsis acute organ dysfunction status: unspecified Qualified Code(s): A41.9 - Sepsis, unspecified organism Leukocytosis Qualifiers: Leukocytosis type: unspecified Qualified Code(s): D72.829 - Elevated white blood cell count, unspecified
[2021-01-29 13:48] LABS: Hematocrit (blood only) 37.2 % (37-47); Hemoglobin 12.9 g/dL (12.0-16.0); Mean Corpuscular Hgb Conc 34.7 g/dL (32-36); Mean Corpuscular Volume 77.8 fL (80-100); Mean Platelet Volume 11.9 fL (7.4-10.4); Platelet Count 105 K/uL (130-400); RDW Coefficient of Variation 13.9 % (11.5-14.5); RDW Standard Deviation 39.6 fL (36.4-46.3); Red Blood Count 4.78 M/uL (4.2-5.4); White Blood Count 22.12 K/uL (4.8-10.8)
[2021-01-29 14:13] LABS: Albumin Globulin Ratio 0.8 (0.9-2); Albumin Level 3.2 gm/dl (3.4-5.0); BUN Creatinine Ratio 40.8 (10-20); Basophils # (auto) 0.01 K/uL (0-0.2); Bilirubin,Total 1.3 mg/dl (0.2-1); Calcium 8.1 mg/dl (8.5-10.1); Creatinine Clr Calc Pharmacy 110.1 ml/min; Dohle Bodies 1+; Est GFR (African American) 116.4 ml/min; Est GFR (Non-African American) 100.5 ml/min; Globulin 3.9 gm/dl (2.5-4.0); Immature Granulocytes # (auto) 0.09 K/uL (0.00-0.02); Immature Granulocytes % (auto) 0.4 %; Lymphocytes % (auto) 3.6 %; Monocytes # (auto) 0.46 K/uL (0.11-0.59); Monocytes % (auto) 2.1 %; Neutrophils # (auto) 20.76 K/uL (1.4-6.5); Neutrophils % (auto) 93.9 %; Total Protein 7.1 gm/dl (6.4-8.2)
[2021-01-29 14:29] LABS: Potassium 3.8 mmol/L (3.5-5.1)
--- NOTE | 2021-01-29 14:55 | CT Scan Report ---
CT OF THE HEAD WITHOUT CONTRAST CLINICAL HISTORY: Headache. COMPARISON STUDY: No previous studies for comparison. CT DOSE: 614.27 mGy.cm TECHNIQUE: Helical axial images of the head were obtained without IV contrast. Automated exposure con trol was utilized for the study. A dose lowering technique was utilized adhering to the principles o f ALARA. FINDINGS: No acute intracranial hemorrhage, midline shift or mass effect is present. The ventricular system is unremarkable. The basal cisterns are patent. No extra-axial collections are present. There are no findings to suggest acute dural sinus thrombosis or acute territorial infarct. No significant calvarial abnormalities are present. Visualized portions of the sinuses and mastoid air cells are cheikh ar. IMPRESSION: No acute intracranial findings. ACT 112: Negative or not required by law. Electronically signed by: Nash Giraldo M.D. 01/29/2021 2:54 PM
[2021-01-29 15:04] LABS: Lyme Ab IgG w/WB Rflx Negative (Negative); Lyme Ab IgM w/WB Rflx Negative (Negative)
[2021-01-29] MEDS ORDERED: GADOBUTROL 10ML VIAL IV ONE (16:01)
--- NOTE | 2021-01-29 16:41 | Magnetic Resonance Report ---
MRI OF THE THORACIC SPINE WITH AND WITHOUT CONTRAST CLINICAL HISTORY: back pain, h/o IVDA, eval discitis, abscess COMPARISON: Thoracic spine radiographs November 25, 2020. TECHNIQUE: Utilizing a 1.5 Gabriella magnet and dedicated coil, multiplanar, multiecho imaging of the th oracic spine was performed before and after the intravenous administration of 8 cc. FINDINGS: This exam is compromised by motion artifact. Alignment of the thoracic spine is anatomic. V ertebral body heights are maintained. Mild multilevel endplate irregularity is degenerative. No suspi cious marrow replacement is present. There is no thoracic spine fracture. Thoracic cord signal is sub optimally assessed on this exam given motion artifact but no definite cord signal abnormality is pres ent. There is no intracanalicular mass or fluid collection. There is no evidence for discitis. The ce ntral canal and neural foramen are patent. IMPRESSION: 1. Exam mildly compromised by motion artifact. No acute process within the thoracic spine by MRI. 2. Mild multilevel endplate irregularity which is degenerative. Patent central canal and neural eric en. 3. Suboptimal evaluation of the thoracic cord signal but no cord signal abnormality identified. ACT 112: Negative or not required by law. Electronically signed by: Nash Giraldo M.D. 01/29/2021 4:39 PM
--- NOTE | 2021-01-29 16:46 | Magnetic Resonance Report ---
MRI OF THE LUMBAR SPINE WITH AND WITHOUT CONTRAST CLINICAL HISTORY: back pain, h/o IVDA, 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 TECHNIQUE: Utilizing a 1.5 Gabriella magnet and dedicated coil, multiplanar, multiecho imaging of the domenic mbar spine was performed before and after uneventful IV administration of 8 mL of Gadavist. FINDINGS: For purposes of numbering on this exam, the L5-S1 disc space is assigned to axial image 23 of 25. Ali gnment of the lumbar spine is anatomic. Vertebral body heights are maintained. Irregularity of the eller perior endplate of L1 is degenerative. There is no intracanalicular mass or fluid collection. The con us terminates at the upper L2 level. This exam is mildly compromised by motion artifact. No evidence for discitis. Paravertebral soft tissues are unremarkable. L1-2: The central canal and neural foramen are patent. L2-3: The central canal and neural foramen are patent. L3-4: The central canal and neural foramen are patent L4-5: There is mild disc bulge. Central canal is patent. There is mild narrowing of the lateral reces ses and the left neural foramen. L5-S1: Note is made of a right paracentral disc protrusion. This results in moderate narrowing of the right lateral recess with probable mass effect upon the descending right L5 nerve root. There is no significant central canal stenosis. There is mild narrowing of the right neural foramen. IMPRESSION: 1. No evidence for discitis. No epidural fluid collection. 2. Right paracentral disc protrusion at L5-S1 which results in moderate narrowing of the right latera l recess with probable mass effect upon the descending right L5 nerve root. 3. Mild disc bulge at L4-L5. ACT 112: Negative or not required by law. Electronically signed by: Nash Giraldo M.D. 01/29/2021 4:45 PM
[2021-01-29] MEDS ORDERED: cefTRIAXone SODIUM 2,000 MG/70 ML BAG IV STA (16:59)
[2021-01-29] MEDS ORDERED: VANCOMYCIN HCL 1,750 MG in SODIUM CHLORIDE 0.9% 500 ML IV ONE (16:59)
[2021-01-29] MEDS ORDERED: VANCOMYCIN CONSULT ACTIVE PRN ×2 (16:59→21:35)
[2021-01-29] MEDS ORDERED: LACTATED RINGER'S 1,000 ML IV ONE ×2 (16:59→18:10)
--- NOTE | 2021-01-29 18:08 | XRay Report ---
XR chest 1V portable CLINICAL HISTORY: illness, + COVID COMPARISON STUDY: Chest radiograph May 30, 2018. FINDINGS: Lung volumes are at the lower limits of normal. Lungs are clear. There is no pneumothorax o r pleural effusion. Cardiac size is normal. Mediastinal contours are normal. There is no evidence for pulmonary edema. IMPRESSION: No acute cardiopulmonary findings. ACT 112: Negative or not required by law. Electronically signed by: Nash Giraldo M.D. 01/29/2021 6:07 PM
--- NOTE | 2021-01-29 18:42 | History & Physical Report ---
Date of Service January 29, 2021 Assessment & Plan (1) Sepsis: SIRS 2, qSOFA 1 - Source unidentified- Blood and urine cultures pending- Afebrile - RUQ abdomen pending - MRI thoracic and lumbar negative - Head CT scan negative - NO Murmurs on exam - Continue Vanc, Rocephin- Add on Doxycycline (tickborne diseases) - Resuscitated with 3L crystalloid- lactate 0.7 - Continue with Normosol 90 ml per hour- goal MAP >65, UO 0.5ml/kg-- place [facility] if remains hypovolemic - WBC 22 with PCT 21.7, CRP 19.8 - NLR- 21:1 - Organ dysfunction- Platelets <150, LFT elevated, elevated BUN (pre-renal), - PT/INR pending (2) Leukocytosis: Leukemoid reaction with hypovolemia concentration as well- Follow response in AM - Tickborne pattern with joint pain, lfts, PLT <150- however no fevers - Doxycycline 100 q12 added- first dose now in ER - Peripheral smear in AM- follow for inclusion bodies - Pending Anaplasmosis dna, Ehrlichiosis. LYME negative. - ECHO in the morning to follow up on endocarditis possibility- however no murmur on exam, last IV drug use was 2 months ago per report - Blood culture repeat in morning until ECHO done - absence of pelvic pain, drainage, negative HCG - Patient deferred CT scan of abdomen and pelvis- RUQ ultrasound for now - Patient worsens or does not improve with Doxy- re-evaluate for TSS (3) COVID-19: As above- supportive care at this time, not hypoxic - Did receive 10 mg Decadron in EMD for headache in migraine cocktail - Lovenox 30mg Q12 for VTE prophylaxis (4) Opioid abuse: History of Heroin use via intravenous route - No track warner, no abscess identified on arms or legs - Patient reports she tested negative for HEP C a few months ago at [facility] - repeat Hep C - Has never had HIV test- consider - Continue Suboxone (5) Asthma: Patient reports she rarely uses her inhalers - Continue availability (6) Left-sided low back pain with sciatica: Chronic - Tylenol while in house - Continue cyclobenzaprine if needed (7) Depression: No acute needs at this time - Follow hospital course as patient has 6 year old and dog at home that she wants to get home and take care of (8) Attention deficit disorder: No medications no acute need History of Present Illness Primary Care Provider: Lola Chanel MD 30 YOF with past medical history of: Heroin use, last used 2 months ago, now on Suboxone, migraines, asthma, 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 Patient comes to the [facility] today for 3 day history of body aches all over, fa tigue, general feeling of unwell, and red rash to hands and feet. By my examination the rash was gone, but also in setting of Benadryl administration in EMD. The patient started feeling ill on with body aches, mild headache. This progressed to fatigue and diarrhea on Saturday into Saturday. Today she continued with the fatigue and body aches. The rash comes and goes per the patient and has not had this before that she can remember. Reported as in between her fingers tops of hands and tops of feet. She denies any pelvic pain or vaginal discharge, last period was ~2 weeks ago. Does use tampons. She has not eaten or drank much in the past 72 hours. In the EMD it was noted that her WBC was elevated to 22, with CRP 19.8 and PCT 21.72 and ESR of 20. Patient had MRI done of the spine and negative for any abscess in absence of any neurological symptoms or meningismus. CXR was performed and negative for intrapulmonary process or septic looking emboli. Blood cultures are pending, however the patient has yet to urinate. She was started on Vancomycin and Rocephin for broad coverage to also cover endocarditis. Patient remains marginally hypotensive with MAPS 64-66 and HR 94. Lacate is pending and will receive another Liter of LR, which will be 3L crystalloid. HCG negative. Patient will be admitted and continue infectious workup, trending of biomarkers, IV antibiotics and hemodynamic trending. For her COVID 19- this will be day 4, is not hypoxic or having any respiratory symptoms. Allergies Allergy/AdvReac Type Severity Reaction Status Date / Time bee venom protein (honey bee) Allergy Severe ANAPHYLAXIS Verified 01/04/21 08:06 BODY GLITTER Allergy Intermediate swelling Uncoded 01/04/21 08:06 Home Medications Medication Instructions Recorded Confirmed Type albuterol sulfate 1.25 mg INH Q6H PRN #75 ml 05/31/18 01/29/21 Rx acetaminophen [Tylenol] 650 mg PO Q6H PRN 07/21/19 01/29/21 History cyclobenzaprine 10 mg tablet 10 mg PO TID PRN #90 tab 05/02/20 01/29/21 Rx albuterol sulfate 90 mcg/actuation 2 puff INHALATION Q4 PRN #6.7 g 09/29/20 01/29/21 Rx aerosol inhaler epinephrine 0.3 mg/0.3 mL 0.3 mg IM Q10M PRN #1 ea 09/29/20 01/29/21 Rx injection, auto-injector buprenorphine 8 mg-naloxone 2 mg 1 film SUBLINGUAL DAILY 11/25/20 01/29/21 History sublingual film Medical Marijuana 1 dose PO DAILY PRN 12/21/20 01/29/21 History Past Med/Surg History Medical History Anaphylactic reaction to bee sting Anxiety Asthma rarely uses PRN INH Attention deficit disorder (01/13/13) Cholelithiases Depression (01/13/13) Medication reaction Surgical History H/O pilonidal cyst S/P SURGICAL EXCISION, CLOSURE WITH WOUND VAC Family History Mother FHx: cholecystectomy Sister Hx of cholecystectomy Social History Smoking Status: Current every day smoker Tobacco Type: E-cigarettes / Vaping Cigarettes Per Day: 1/2 ppd; Second Hand Exposure: Yes (as a child); Hx Alcohol Use: No Hx Substance Use: No Preferred Language: Beninese Communication Ability: Effective Visual Impairment: Limited 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 Beliefs That Will Affect Care: None marital status: Single Current Living Situation: Family Feels Safe at Home: Yes Assistive Devices: None Review of Systems Review of Systems: REVIEW OF SYSTEMS: Constitutional: No fever, sweats or chills Eyes: No diplopia, no worsening or blurred vision ENT: normal hearing, no trouble swallowing Respiratory: No cough, sputum, dyspnea at rest or on exertion Cardiovascular: No chest pain, tightness or palpitations Abdomen: (+) diarrhea, nausea, No pain, vomiting, or constipation Musculoskeletal: No joint pain, calf pain, swelling Neurologic: (+) headache, No weakness, numbness/tingling, or balance problems Psychiatric: No anxiety or depression Skin:(+) erythematous rash as HPI Physical Exam Physical Exam: PHYSICAL EXAM: General: awake, alert, fatigued Head: Normocephalic, atraumatic ENT: PERRL, EOMI, no pharyngeal exudate, mucous membranes dry Neuro: AAO x 3, speech clear and appropriate, strength intact bilaterally 5/5, sensation intact and equal all extremities and dermatomes, no pronator drift Chest: equal rise and fall of the chest, no accessory muscle use, no heaves or thrills, Clear to auscultation, on room air, Cardiac: Regular rate and rhythm, telemetry reviewed NSR, skin warm dry, cap refill <3 seconds, peripheral pusles +2 no JVD, no murmur, no edema GI: NABS x 4 quadrants, soft, nontender to palpation, no rebound, guarding or tenderness : straight cath now, awaiting urine, no pain, no CVA tenderness, Extremities: Normal inspection, no peripheral edema or erythema, calfs nontender to palpation Psych: Normal mood and affect Skin: no rash or erythema currently at this time Results & Data Results & Data ([facility]) Vital Signs (Past 12 Hours) Vital Signs Temp Pulse Resp BP Pulse Ox 01/29/21 18:01 94 H 13 98/48 L 95 01/29/21 17:31 91 H 14 98/45 L 99 01/29/21 17:01 89 12 93/44 L 98 01/29/21 16:47 97 H 10 L 86/37 L 96 01/29/21 16:45 95 01/29/21 15:01 99 H 16 99/79 L 01/29/21 14:30 96 H 14 127/59 L 100 01/29/21 14:20 98 H 12 98 01/29/21 14:03 99 01/29/21 14:02 97 H 16 107/52 L 97 01/29/21 13:00 93 H 14 99/61 L 98 01/29/21 12:50 97 H 14 01/29/21 12:45 36.5 C 96 H 15 100/49 L 99 01/29/21 12:41 94 H 12 100/49 L 100 Laboratory Results Abnormal lab results 01/29/21 01/29/21 01/29/21 Range/Units 13:25 13:35 13:35 WBC 22.12 H (4.8-10.8) K/uL MCV 77.8 L (80-100) fL Plt Count 105 L (130-400) K/uL MPV 11.9 H (7.4-10.4) fL Neut # (Auto) 20.76 H (1.4-6.5) K/uL Lymph # (Auto) 0.80 L (1.2-3.4) K/uL Immature Gran # (Auto) 0.09 H (0.00-0.02) K/uL Sodium 134 L (136-145) mmol/L BUN 32 H (7-18) mg/dl BUN/Creatinine Ratio 40.8 H (10-20) Calcium 8.1 L (8.5-10.1) mg/dl Total Bilirubin 1.3 H (0.2-1) mg/dl AST (15-37) U/L ALT 163 H (12-78) U/L Alkaline Phosphatase 135 H (45-117) U/L C-Reactive Protein (0-0.29) mg/dl Albumin 3.2 L (3.4-5.0) gm/dl Albumin/Globulin Ratio 0.8 L (0.9-2) Procalcitonin (0-0.5) ng/ml SARS-CoV-2 (PCR) POSITIVE A* (Negative) 01/29/21 01/29/21 01/29/21 Range/Units 14:07 14:07 14:07 WBC (4.8-10.8) K/uL MCV (80-100) fL Plt Count (130-400) K/uL MPV (7.4-10.4) fL Neut # (Auto) (1.4-6.5) K/uL Lymph # (Auto) (1.2-3.4) K/uL Immature Gran # (Auto) (0.00-0.02) K/uL Sodium (136-145) mmol/L BUN (7-18) mg/dl BUN/Creatinine Ratio (10-20) Calcium (8.5-10.1) mg/dl Total Bilirubin (0.2-1) mg/dl AST 70 H (15-37) U/L ALT (12-78) U/L Alkaline Phosphatase (45-117) U/L C-Reactive Protein 19.80 H (0-0.29) mg/dl Albumin (3.4-5.0) gm/dl Albumin/Globulin Ratio (0.9-2) Procalcitonin 21.72 H (0-0.5) ng/ml SARS-CoV-2 (PCR) (Negative) Diagnostic Findings Head CT 01/29/21 13:14 CT OF THE HEAD WITHOUT CONTRAST CLINICAL HISTORY: Headache. COMPARISON STUDY: No previous studies for comparison. CT DOSE: 614.27 mGy.cm TECHNIQUE: Helical axial images of the head were obtained without IV contrast. Automated exposure control was utilized for the study. A dose lowering technique was utilized adhering to the principles of ALARA. FINDINGS: No acute intracranial hemorrhage, midline shift or mass effect is present. The ventricular system is unremarkable. The basal cisterns are patent. No extra-axial collections are present. There are no findings to suggest acute dural sinus thrombosis or acute territorial infarct. No significant calvarial abnormalities are present. Visualized portions of the sinuses and mastoid air cells are clear. IMPRESSION: No acute intracranial findings. ACT 112: Negative or not required by law. Electronically signed by: Nash Giraldo M.D. 01/29/2021 2:54 PM Lumbar Spine MRI 01/29/21 14:04 MRI OF THE LUMBAR SPINE WITH AND WITHOUT CONTRAST CLINICAL HISTORY: back pain, h/o IVDA, 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 TECHNIQUE: Utilizing a 1.5 Gabriella magnet and dedicated coil, multiplanar, multiecho imaging of the lumbar spine was performed before and after uneventful IV administration of 8 mL of Gadavist. FINDINGS: For purposes of numbering on this exam, the L5-S1 disc space is assigned to axial image 23 of 25. Alignment of the lumbar spine is anatomic. Vertebral body heights are maintained. Irregularity of the superior endplate of L1 is degenerative. There is no intracanalicular mass or fluid collection. The conus terminates at the upper L2 level. This exam is mildly compromised by motion artifact. No evidence for discitis. Paravertebral soft tissues are unremarkable. L1-2: The central canal and neural foramen are patent. L2-3: The central canal and neural foramen are patent. L3-4: The central canal and neural foramen are patent L4-5: There is mild disc bulge. Central canal is patent. There is mild narrowing of the lateral recesses and the left neural foramen. L5-S1: Note is made of a right paracentral disc protrusion. This results in moderate narrowing of the right lateral recess with probable mass effect upon the descending right L5 nerve root. There is no significant central canal stenosis. There is mild narrowing of the right neural foramen. IMPRESSION: 1. No evidence for discitis. No epidural fluid collection. 2. Right paracentral disc protrusion at L5-S1 which results in moderate narrowing of the right lateral recess with probable mass effect upon the descending right L5 nerve root. 3. Mild disc bulge at L4-L5. ACT 112: Negative or not required by law. Electronically signed by: Nash Giraldo M.D. 01/29/2021 4:45 PM Thoracic Spine MRI 01/29/21 14:04 MRI OF THE THORACIC SPINE WITH AND WITHOUT CONTRAST CLINICAL HISTORY: back pain, h/o IVDA, eval discitis, abscess COMPARISON: Thoracic spine radiographs November 25, 2020. TECHNIQUE: Utilizing a 1.5 Gabriella magnet and dedicated coil, multiplanar, multiecho imaging of the thoracic spine was performed before and after the intravenous administration of 8 cc. FINDINGS: This exam is compromised by motion artifact. Alignment of the thoracic spine is anatomic. Vertebral body heights are maintained. Mild multilevel endplate irregularity is degenerative. No suspicious marrow replacement is present. There is no thoracic spine fracture. Thoracic cord signal is suboptimally assessed on this exam given motion artifact but no definite cord signal abnormality is present. There is no intracanalicular mass or fluid collection. There is no evidence for discitis. The central canal and neural foramen are patent. IMPRESSION: 1. Exam mildly compromised by motion artifact. No acute process within the thoracic spine by MRI. 2. Mild multilevel endplate irregularity which is degenerative. Patent central canal and neural foramen. 3. Suboptimal evaluation of the thoracic cord signal but no cord signal ab normality identified. ACT 112: Negative or not required by law. Electronically signed by: Nash Giraldo M.D. 01/29/2021 4:39 PM Chest X-Ray 01/29/21 16:59 XR chest 1V portable CLINICAL HISTORY: illness, + COVID COMPARISON STUDY: Chest radiograph May 30, 2018. FINDINGS: Lung volumes are at the lower limits of normal. Lungs are clear. There is no pneumothorax or pleural effusion. Cardiac size is normal. Mediastinal contours are normal. There is no evidence for pulmonary edema. IMPRESSION: No acute cardiopulmonary findings. ACT 112: Negative or not required by law. Electronically signed by: Nash Giraldo M.D. 01/29/2021 6:07 PM Medications Administered Vancomycin HCl 1,750 mg/ (Sodium Chloride) 535 mls @ 200 mls/hr IV NOW ONE Stop: 01/29/21 19:39 Last Admin: 01/29/21 18:25 Dose: 200 mls/hr Documented by: [id number] Discontinued Medications Dexamethasone Sodium Phosphate (DexamethasonePf 10 Mg/Ml Vial) 10 mg IV NOW ONE Stop: 01/29/21 13:14 Last Admin: 01/29/21 13:55 Dose: 10 mg Documented by: [id number] Diphenhydramine HCl (Diphenhydramine 50 Mg/Ml Vial) 50 mg IV NOW STA Stop: 01/29/21 13:14 Last Admin: 01/29/21 13:54 Dose: 50 mg Documented by: [id number] Gadobutrol (Gadobutrol 10ml Vial) 8 ml IV ONCE ONE Stop: 01/29/21 16:02 Last Admin: 01/29/21 16:01 Dose: 8 ml Documented by: [id number] Sodium Chloride (Nss 1000ml) 2,000 mls @ 999 mls/hr IV .Q2H1M STA Stop: 01/29/21 15:20 Last Infusion: 01/29/21 18:26 Dose: 0 mls/hr Documented by: [id number] Admin: 01/29/21 13:54 Dose: 999 mls/hr Documented by: [id number] Ceftriaxone Sodium (Rocephin) 2,000 mg in 70 mls @ 140 mls/hr IV NOW STA Stop: 01/29/21 17:28 Last Infusion: 01/29/21 17:49 Dose: 0 mls/hr Documented by: [id number] Admin: 01/29/21 17:19 Dose: 140 mls/hr Documented by: [id number] Lactated Ringer's (Lr) 1,000 mls @ 999 mls/hr IV .Q1H1M ONE Stop: 01/29/21 17:59 Last Admin: 01/29/21 18:25 Dose: 999 mls/hr Documented by: [id number] Ketorolac Tromethamine (Ketorolac Tromethamine 15 Mg/Ml Vial) 10 mg IV NOW STA Stop: 01/29/21 13:14 Last Admin: 01/29/21 13:55 Dose: 10 mg Documented by: [id number] Prochlorperazine (Prochlorperazine 5 Mg/Ml 2 Ml Vial) 10 mg IV NOW STA Stop: 01/29/21 13:14 Last Admin: 01/29/21 13:55 Dose: 10 mg Documented by: [id number] ECG Additional Comments: Normal sinus rhythm Nonspecific T wave abnormality Abnormal ECG When compared with ECG of 14-JAN-2013 16:17, Nonspecific T wave abnormality, worse in Inferior leads Nonspecific T wave abnormality now evident in Lateral leads Code Status & VTE Plan Code Status CODE: FULL VTE: SCD's, Lovenox, VTE Prophylaxis Plan VTE Prophylaxis will be ordered: Yes Supervising Physician Co-Signing Physician Notes I supervised DANIEL Hays on this admission. I interviewed and examined the patient independently of him. The plan is as written in the his note except for any following changes/exceptions: None Pleasant 30yo F w/ hx of substance use disorder who presents with back pain, myalgias, and headache. Does have a dog. No other focal symptoms. Imaging in the ER was negative. Thrombocytopenia and elevated LFTs point toward tickborne disease, though initial testing negative. - Start on vancomycin/ceftriaxone and doxycycline for possibility of bacteremia/endocarditis and tick-borne disease respectively. - RUQ u/s given elevated LFTs and some mild abdominal pain. Patient declined CT a/p for me this evening. PG Care Time/CCT Total # of Minutes Spent Total Time Spent with Patient: Total time spent is greater than 50% in coordination of care (as documented) at patient's floor/unit and/or counseling patient: Coding Level of Care Code 96530 Initial Inpt Care Lvl 3 Diagnoses Sepsis A41.9 Sepsis acute organ dysfunction status: unspecified Sepsis type: sepsis due to unspecified organism Leukocytosis D72.829 Leukocytosis type: unspecified COVID-19 U07.1 Opioid abuse F11.10 Asthma J45.20 Asthma complication type: uncomplicated Asthma persistence: intermittent Asthma severity: mild Left-sided low back pain with sciatica M54.42; G89.29 Chronicity: chronic Sciatica laterality: sciatica of left side Depression F32.9 Depression Type: unspecified Attention deficit disorder F98.8 Hyperactivity presence: unspecified (1) Attention deficit disorder Hyperactivity presence: unspecified Qualified Code(s): F98.8 - Other s pecified behavioral and emotional disorders with onset usually occurring in childhood and adolescence (2) Depression Depression Type: unspecified Qualified Code(s): F32.9 - Major depressive disorder, single episode, unspecified (3) Leukocytosis Leukocytosis type: unspecified Qualified Code(s): D72.829 - Elevated white blood cell count, unspecified (4) Left-sided low back pain with sciatica Chronicity: chronic Sciatica laterality: sciatica of left side Qualified Code(s): M54.42 - Lumbago with sciatica, left side; G89.29 - Other chronic pain (5) Sepsis Sepsis acute organ dysfunction status: unspecified Sepsis type: sepsis due to unspecified organism Qualified Code(s): A41.9 - Sepsis, unspecified organism (6) Asthma Asthma complication type: uncomplicated Asthma persistence: intermittent Asthma severity: mild Qualified Code(s): J45.20 - Mild intermittent asthma, uncomplicated
[2021-01-29 18:56] LABS: Pregnancy Test, Serum Negative (Negative)
[2021-01-29] MEDS ORDERED: DOXYCYCLINE HYCLATE 100 MG in DEXTROSE 5% 100 ML IV ONE (19:30)
[2021-01-29 19:33] LABS: Prothrombin Time 10.3 Seconds (9.0-12.0)
[2021-01-29 20:30] LABS: Appearance Urine Clear (Clear); Bacteria Urine Automated Negative (Negative); Bilirubin Urine Negative (Negative); Blood Urine 1+ (Negative); Color Urine Yellow; Epithelial Cell Urine Auto >30 /lpf (0-5); Glucose Urine UA Negative (Negative); Ketones Urine 1+ (Negative); Leukocyte Esterase Urine Negative (Negative); Nitrite Urine Negative (Negative); Protein Urine Negative (Negative); RBC Urine Automated 0-4 /hpf (0-4); Specific Gravity Urine 1.017 (1.000-1.030); Urobilinogen Urine Negative (Negative)
[2021-01-29] MEDS ORDERED: CYCLOBENZAPRINE HCL 10 MG TAB PO PRN (21:22)
[2021-01-29] MEDS ORDERED: ALBUTEROL HFA 8 GM INHALER INH PRN (21:22)
[2021-01-29] MEDS ORDERED: ONDANSETRON INJ 2 MG/ML 2 ML VIAL IV PRN (21:22)
[2021-01-29] MEDS ORDERED: ACETAMINOPHEN 325 MG TAB PO PRN (21:22)
[2021-01-29] MEDS ORDERED: ALBUTEROL 0.5% NEB SOLN 2.5 MG/0.5 ML VIAL INH PRN (21:22)
--- NOTE | 2021-01-29 21:54 | Pharmacy Report ---
Pharmacy Abx Dose Short Note - Date of Service January 29, 2021 - Assessment & Plan Assessment 30 year old F receiving IV Vancomycin, Ceftriaxone (not a consult), and Doxycycline (not a consult) for treatment of sepsis, unclear source; possible endocarditis. Patient is also +COVID Day # 1 of antimicrobial therapy. * No renal impairment noted. Most recent sCr = 0.79 mg/dL with estimated CrCl >100 mL/min. Estimated pharmacokinetic parameters: * Ke ~0.096/hr, T1/2 ~7.22 hrs * Patient received Vancomycin 1750mg (~21mg/kg) IV x 1 as a loading dose in the ED Plan Vancomycin * Initiate Vancomycin 1250mg IV q8 based on Vancomycin AUC dosing nomogram * Goal trough level for endocarditis : 15 to 20 mcg/mL * Trough level ordered for: 01/31/21 @ 0930 Pharmacy will continue to follow and will adjust dose/frequency as necessary. Thank you.
[2021-01-29] MEDS ORDERED: CALCIUM GLUCONATE 10% 1,000 MG in SODIUM CHLORIDE 0.9% 50 ML IV ONE (22:00)
[2021-01-29] MEDS ORDERED: MELATONIN 3 MG TAB PO PRN (22:31)
[2021-01-30] MEDS: ENOXAPARIN INJ 30 MG/0.3 ML SYR SQ SCH ×2 (00:15→09:01)
[2021-01-30] MEDS: NORMOSOL-R 1,000 ML IV SCH ×2 (00:16→12:19)
[2021-01-30] MEDS: VANCOMYCIN HCL 1,250 MG in SODIUM CHLORIDE 0.9% 250 ML IV SCH ×2 (02:38→10:35)
[2021-01-30 06:17] LABS: C Reactive Protein 12.2 mg/dl (0-0.29); Calcium 7.9 mg/dl (8.5-10.1); Creatinine Clr Calc Pharmacy 149.7 ml/min; Est GFR (African American) 143.4 ml/min; Est GFR (Non-African American) 123.7 ml/min; Magnesium 2.8 mg/dl (1.8-2.4)
[2021-01-30 06:29] LABS: Hematocrit (blood only) 32.1 % (37-47); Mean Corpuscular Hemoglobin 26.4 pg (25-34); Mean Corpuscular Hgb Conc 34.3 g/dL (32-36); Mean Corpuscular Volume 77.2 fL (80-100); Mean Platelet Volume 12.5 fL (7.4-10.4); Platelet Count 87 K/uL (130-400); RDW Coefficient of Variation 14.1 % (11.5-14.5); RDW Standard Deviation 40.3 fL (36.4-46.3); Red Blood Count 4.16 M/uL (4.2-5.4); White Blood Count 9.87 K/uL (4.8-10.8)
[2021-01-30 06:34] LABS: Immature Granulocytes # (auto) 0.05 K/uL (0.00-0.02); Immature Granulocytes % (auto) 0.5 %; Lymphocytes # (auto) 0.48 K/uL (1.2-3.4); Lymphocytes % (auto) 4.9 %; Monocytes # (auto) 0.25 K/uL (0.11-0.59); Monocytes % (auto) 2.5 %; Neutrophils # (auto) 9.09 K/uL (1.4-6.5); Neutrophils % (auto) 92.1 %; Platelet Estimate Decreased (Normal); RBC Morphology Unremarkable
--- NOTE | 2021-01-30 07:49 | Ultrasound Report ---
US liver CLINICAL HISTORY: Abdominal pain. COMPARISON STUDY: Right upper quadrant ultrasound July 21, 2019. FINDINGS: There is no biliary ductal dilatation status post cholecystectomy. The liver is sonographic ally normal. Common bile duct measures 5 mm in caliber. Pancreas is unremarkable by sonography. There is no right hydronephrosis. IMPRESSION: Unremarkable right upper quadrant ultrasound status post cholecystectomy. ACT 112: Negative or not required by law. Electronically signed by: Nash Giraldo M.D. 01/30/2021 7:47 AM
[2021-01-30] MEDS ORDERED: DOXYCYCLINE HYCLATE 100 MG in DEXTROSE 5% 100 ML IV SCH (09:00)
[2021-01-30] MEDS ORDERED: BUPRENORPHINE/NALOXONE 8/2 MG TAB SL SCH ×2 (09:00)
[2021-01-30 09:32] LABS: Albumin Level 2.7 gm/dl (3.4-5.0); Bilirubin Direct 0.3 mg/dl (0-0.2); Bilirubin,Total 0.5 mg/dl (0.2-1)
[2021-01-30] MEDS ORDERED: cefTRIAXone SODIUM 2,000 MG in DEXTROSE 5% 50 ML IV SCH (18:00)
--- NOTE | 2021-01-30 18:33 | Discharge Summary ---
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 Patient comes to the EMD today for 3 day history of body aches all over, fatigue, general feeling of unwell, and red rash to hands and feet. By my examination the rash was gone, but also in setting of Benadryl administration in EMD. The patient started feeling ill on with body aches, mild headache. This progressed to fatigue and diarrhea on Saturday into Saturday. Today she continued with the fatigue and body aches. The rash comes and goes per the patient and has not had this before that she can remember. Reported as in between her fingers tops of hands and tops of feet. She denies any pelvic pain or vaginal discharge, last period was ~2 weeks ago. Does use tampons. She has not eaten or drank much in the past 72 hours. In the EMD it was noted that her WBC was elevated to 22, with CRP 19.8 and PCT 21.72 and ESR of 20. Patient had MRI done of the spine and negative for any abscess in absence of any neurological symptoms or meningismus. CXR was performed and negative for intrapulmonary process or septic looking emboli. Blood cultures are pending, however the patient has yet to urinate. She was started on Vancomycin and Rocephin for broad coverage to also cover endocarditis. Patient remains marginally hypotensive with MAPS 64-66 and HR 94. Lacate is pending and will receive another Liter of LR, which will be 3L crystalloid. HCG negative. Patient will be admitted and continue infectious workup, trending of biomarkers, IV antibiotics and hemodynamic trending. For her COVID 19- this will be day 4, is not hypoxic or having any respiratory symptoms. Principal Diagnosis Presumed tick-borne infection Discharge Exam Constitutional WD/WN, vitals as above Eyes EOM intact bilaterally; no conjunctival abnormality ENMT external ear and nose normal, oropharynx normal Neck trachea midline, no thyromegaly normal visual inspection Respiratory normal respiratory effort, lungs clear to auscultation no respiratory distress Cardiovascular RRR, no murmur, no edema Gastrointestinal (Abdomen) Inspection/Auscultation: abdomen normal to inspection; abdomen not distended Musculoskeletal no cyanosis or clubbing, extremities motor strength 5/5 Skin no rashes, warm and dry Neurologic moves all extremities and awake Psychiatric Orientation: alert, oriented to person and cooperative Discharge Data Allergies Allergy/AdvReac Type Severity Reaction Status Date / Time bee venom protein (honey bee) Allergy Severe ANAPHYLAXIS Verified 01/04/21 08:06 BODY GLITTER Allergy Intermediate swelling Uncoded 01/04/21 08:06 Consultations 01/29/21 17:20 ED Decision to Admit Stat Ordered Studies 01/29/21 13:14 CT head/brain wo con Stat 01/29/21 14:04 MR lumbar spine wo/w con Stat MR thoracic spine wo/w con Stat 01/29/21 19:01 US liver Stat Hospital Course (1) Sepsis: Likely tick-borne illness as she felt remarkably better after 12 hours of antibiotics. Given her present sobriety, I felt that bacteremia/endocarditis was unlikely. - Will monitor cultures x 5 days. She was agreeable to returning to the hospital if cultures become positive. - She felt at least almost entirely better by 01/30. Discharged on 2 weeks of doxycycline. Will follow up with PCP to review results of the tick testing. Would need repeat CBC & CMP in 1-2 weeks to ensure platelets and LFTs have normalized. SIRS 2, qSOFA 1 - Source unidentified- Blood and urine cultures pending- Afebrile - RUQ abdomen pending - MRI thoracic and lumbar negative - Head CT scan negative - NO Murmurs on exam - Continue Vanc, Rocephin- Add on Doxycycline (tickborne diseases) - Resuscitated with 3L crystalloid- lactate 0.7 - Continue with Normosol 90 ml per hour- goal MAP >65, UO 0.5ml/kg-- place [facility] if remains hypovolemic - WBC 22 with PCT 21.7, CRP 19.8 - NLR- 21:1 - Organ dysfunction- Platelets <150, LFT elevated, elevated BUN (pre-renal), - PT/INR pending (2) Leukocytosis: Leukemoid reaction with hypovolemia concentration as well- Follow response in AM - Tickborne pattern with joint pain, lfts, PLT <150- however no fevers - Doxycycline 100 q12 added- first dose now in ER - Peripheral smear in AM- follow for inclusion bodies - Pending Anaplasmosis dna, Ehrlichiosis. LYME negative. - ECHO in the morning to follow up on endocarditis possibility- however no murmur on exam, last IV drug use was 2 months ago per report - Blood culture repeat in morning until ECHO done - absence of pelvic pain, drainage, negative HCG - Patient deferred CT scan of abdomen and pelvis- RUQ ultrasound for now - Patient worsens or does not improve with Doxy- re-evaluate for TSS (3) COVID-19: As above- supportive care at this time, not hypoxic - Did receive 10 mg Decadron in EMD for headache in migraine cocktail - Lovenox 30mg Q12 for VTE prophylaxis (4) Opioid abuse: History of Heroin use via intravenous route - No track warner, no abscess identified on arms or legs - Patient reports she tested negative for HEP C a few months ago at [facility] - repeat Hep C - Has never had HIV test- consider - Continue Suboxone (5) Asthma: Patient reports she rarely uses her inhalers - Continue availability (6) Left-sided low back pain with sciatica: Chronic - Tylenol while in house - Continue cyclobenzaprine if needed (7) Depression: No acute needs at this time - Follow hospital course as patient has 6 year old and dog at home that she wants to get home and take care of (8) Attention deficit disorder: No medications no acute need Total Time Total Time Spent Total Time Spent (In Minutes): 35 Discharge Plan Discharge Items Patient Disposition: Home - Self-Care Reason For Visit: sepsis, covid 19 Discharge Diagnosis: Likely tick-borne illness Activity: Resume your previous activity Non-emergency contact: Primary Care Provider Call non-emergency contact if: your symptoms worsen and your rectal temperature is above 100.4 Follow-up/Referrals: Lola Chanel MD [Primary Care Provider] - 02/02/21 12:00 pm (this apt is a phone call visit. ) Diet: Regular Addtl Attending Provider Instructions: You were admitted to the hospital with back pain and generalized pain, nausea, vomiting, and diarrhea. Your labs point toward a tick-borne illness even though you didn't note any tick bites recently. We are sending you home on doxycycline for 2 weeks to treat this. Take this with a big glass of water and don't lie down for 30 minutes or so to be sure the pill gets down into your stomach. The follow-up labs will all be back over the next few days. Please see Dr. Chanel by the end of this week to be sure you are doing well and still feeling better. She can re-draw a blood test to be sure everything is returning to normal. We are monitoring your blood cultures for 5 full days. If any of the cultures come back positive, you will need to come back to the hospital. We are running a small risk of undertreating an infection if this is the case, so please have a low threshold to call your PCP or come back to the hospital. Certainly if you see new rash, have fevers (temp greater than 100.4), more nausea, vomiting, or any other issues, please seek help right away. Because of your positive Covid test, please isolate at home for 2 weeks to be sure you are not infectious for anyone else. Pending Studies at Discharge: Yes Studies:: Tick-borne illness labs Stand-Alone Forms: My [facility] [employer], Smoking Cessation Medications and DC Order Prescriptions: New doxycycline hyclate 100 mg capsule 100 mg PO BID 14 Days Qty: 28 RF: 0 Continued cyclobenzaprine 10 mg tablet 10 mg PO TID PRN (Reason: muscle spasm) Qty: 90 RF: 2 buprenorphine-naloxone 8-2 mg film 1 film sublingual DAILY RF: 0 albuterol sulfate [Ventolin HFA] 90 mcg/actuation HFA aerosol inhaler 2 puff INHALATION Q4 PRN (Reason: Shortness Of Breath Or Wheezing) Qty: 6.7 RF: 1 epinephrine [EpiPen] 0.3 mg/0.3 mL auto-injector 0.3 mg IM Q10M PRN (Reason: anaphylaxis) Qty: 1 RF: 1 Medical Marijuana 1 dose PO DAILY PRN (Reason: Pain) RF: 0 albuterol sulfate 1.25 mg/3 mL solution for nebulization 1.25 mg INH Q6H PRN (Reason: bronchospasm) Qty: 75 RF: 0 acetaminophen [Tylenol] 325 mg Tablet 650 mg PO Q6H PRN (Reason: Fever Or Pain) RF: 0 Discharge Orders: Discharge Order (Routine); Ordered 01/30/21 Ordered By: Fercho Cardenas Admission Data Admit Date/Time: 01/29/21 19:33 Attending Provider: Fercho Cardenas Admit Provider: Fercho Cardenas Primary Care Provider: Baitel,Lola Other Providers: Fercho Cardenas Other Interventions: Discharge Summary Assessment (RN) Last Done: 01/30/21 13:51 Coding Level of Care Code D/C Day Management >30 mins Diagnoses Sepsis A41.9 Sepsis type: sepsis due to unspecified organism Sepsis acute organ dysfunction status: unspecified Leukocytosis D72.829 Leukocytosis type: unspecified COVID-19 U07.1 Opioid abuse F11.10 Asthma J45.20 Asthma severity: mild Asthma persistence: intermittent Asthma complication type: uncomplicated Left-sided low back pain with sciatica M54.42; G89.29 Chronicity: chronic Sciatica laterality: sciatica of left side Depression F32.9 Depression Type: unspecified Attention deficit disorder F98.8 Hyperactivity presence: unspecified
[2021-01-31] MEDS ORDERED: VANCOMYCIN TROUGH ONE (09:30)
[2021-02-01 22:37] LABS: Ehrlichia chaff IgG Ab <1:64 (<1:64); Ehrlichia chaff IgM Ab <1:20 (<1:20)
== END 2021-01-30 15:01 | disposition home or self-care (01) | DRG 871 ==
LOC: ED 12:35 → 2S 19:33